=== PATIENT | male | born 1960 | race Caucasian/White ===

== ENCOUNTER 2021-04-09 13:45 | Emergency (ER) | payer MEDICAID, OTHER ==
[~2021-04-09] VITALS: Ht 193 cm; Wt 100.0 kg
[2021-04-09 13:48] VITALS: BP 118/73
[2021-04-09] MEDS ORDERED: LIDOCAINE 1%-EPI 1:100K, 20ML ONE (14:20)
[2021-04-09] MEDS ORDERED: LIDOCAINE 1%-EPI 1:100K, 20ML SQ ONE (14:30)
[2021-04-09] MEDS ORDERED: NEOSPORIN OINT. PKT 1 PACKET ONE (15:22)
== END 2021-04-09 15:34 | disposition home or self-care (01) ==
LOC: ED 15:28
DX: S91.011A Laceration without foreign body, right ankle, initial encounter (principal); X58.XXXA Exposure to other specified factors, initial encounter; Y93.89 Activity, other specified; Y92.69 Other specified industrial and construction area as the place of occurrence of the external cause; Y99.8 Other external cause status
CPT/HCPCS: 12041; 99284